=== PATIENT | male | born 1985 ===

== ENCOUNTER 2020-11-22 09:37 | Outpatient (CLI) | payer OTHER ==
[2020-11-22 12:59] VITALS: BP 141/75
--- NOTE | 2020-11-22 12:59 | SLEEP CARE CONSULTATION ---
Information from patient questionnaire entered by Aleksandra Rivera. I have reviewed and concur with the information entered by Aleksandra Rivera. This document represents the service I personally performed and the decisions made by me, Awilda Patterson MD, [facility]. History of Present Illness Service Date and Time: 11/22/2020 0937 Reason for Visit: New patient Chief Complaint: reports: Insomnia, Unrefreshed sleep, Excessive daytime sleepiness, Other (sleep paralysis) Date of Onset: sleep paralysis - 11 years, daytime sleepiness - 1 year Usual bedtime: 10-11 pm Time it takes to fall asleep: 15 minutes Number of times waking at night: 2 Reasons for waking at night: reports: Other (unknown reason) Toss, Turn, or Twitch while sleeping: Yes Recalls having dreams: No Usually gets out of bed at: 6 am on work days Feels refreshed in the morning: No Morning headache: No Sleepy or fatigued during the day: Yes Ever fallen asleep while driving: Yes Takes day naps: No Dreams during day naps: Yes Prior sleep studies: No Additional HPI information: I had the pleasure of seeing Mr. Curran today regarding the possibility of him having a sleep disorder. As you know, he is a 35 year old gentleman who complains of insomnia, excessive daytime sleepiness, unrefreshed sleep, and sleep paralysis. He says the sleep paralysis occurs when he is under stress. Usually he would fall back asleep. The patient tells me that he normally goes to bed around 10 - 11 pm, and it takes him approximately 15 minutes to fall asleep. He has not been told that he snores loudly or irregularly at night. He has never been observed to stop breathing in his sleep. However, he sleeps alone most of the time. He can recall waking up on the average of 2 times during the night. He has never awakened occasionally because of his own snoring, choking, or having to gasp for air. There is not a lot of tossing and turning in his sleep. No somniloquy (sleep talking) or somnambulism (sleep walking). Generally he can recall having dreams. In the morning he usually gets up out of the bed around 6 a.m. not feeling refreshed nor rested. He usually does not have a morning headache. During the day he feels sleepy and fatigued. His score on [place] Sleepiness Scale is 14 out of 24. He has fallen asleep while driving and has gone out of the hernan. He usually does not take naps during the day. Upon falling asleep during the day he reports having vivid dreams. He has never had sleep paralysis, experienced cataplexy or symptoms of restless leg syndrome. He reports having impaired concentration during the day. - Parasomnia Symptoms Ever been unable to move upon waking from sleep: Yes Walks in sleep: No Talks in sleep: No Ever acted out dreams in sleep: No Ever felt weak in the knees when startled or emotional: No Bothered by creepy, crawly, restless sensations in legs: No Problems with memory or concentration: Yes Subjective Initial [place] Sleepiness Scale score: 14 (in 2020) Social History The patient's occupation is a Active . Patient is Single and lives in [place]. Have you smoked in the past 12 months: No Alcohol use: Yes Alcohol amount and frequency: 2-3 drinks once a week Caffeine use: Yes Caffeine amount and frequency: once a day, mon-fri in the morning Family History Family history of sleep disordered breathing: Yes Family Hx Sleep Apnea: Mother: Snoring, Father: Snoring Allergies and Home Medications Drug allergies reviewed: Yes Home medication list reviewed: Yes Review of Systems Review of systems same as previous: Yes Weight gain over past 5 years: 30 Cardiovascular: denies: high blood pressure, palpitations, chest pain, irregular heart rate or pulse, leg or foot swelling, have to sleep sitting up, other Respiratory: denies: shortness of breath, wheeze, sputum production, chronic cough, other Gastrointestinal: denies: heartburn, difficulty swallowing, nausea, vomitting, diarrhea, abdominal pain, other Urinary: denies: incontinence, frequency, urgency, impotence, other Neurological: reports: other (memory loss) Psychiatric: denies: Attention Deficit Hyperactivity, anxiety, depression, mood disorder, claustrophobia, other Ear/Nose/Throat: reports: nasal congestion Endocrine: denies: thyroid disease, history of goiter, sluggishness, too hot or cold, excessive thirst, increased appetite, increased urination, unexplained weakness, other Musculoskeletal: denies: joint pain, neck pain, back pain, joint swelling, muscle pain or cramping, mobility problems, other Immunologic: reports: sneezing, rash Physical Exam Vital signs obtained and entered by: Dr. Patterson Blood Pressure: 141/75 Cuff size: regular Heart Rate: 58 O2 Saturation: 98 Height: 5 ft 11 in Weight: 188 lb Body Mass Index: 26.2 BMI Classification: Overweight Neck circumference: 16 HEENT: No craniofacial malformation Nostrils: patent to airflow Turbinates: normal Septum: midline Mouth and throat: normal Soft palate: normal Hard palate: normal Uvula: normal Uvula visualization: 100% Mallampati Class I Tongue: normal in size Tonsils: small Chin and jaw: normal size and position Neck: normal w/o lymphadenopathy or thyromegaly Heart: regular rate and rhythm Lungs: clear bilaterally Extremities: no edema or clubbing Impression and Plan IMPRESSION: 1. Hypersomnia, possibly narcolepsy without cataplexy given the symptoms of excessive daytime sleepiness, sleep paralysis, and hypnagogia. He appears to have adequate night sleep of 7 8 hours a night. I recommend proceeding to polysomnography identify any sleep disrupting conditions. If none, a multiple sleep latency test (MSLT) will be performed to see if he has narcolepsy. I informed the patient of what the sleep studies involve and after some discussion, he agreed to proceed. Plan: 1. Schedule polysomnography + multiple sleep latency test (MSLT) 2. Be careful with driving and avoid long distance driving or when feeling sleepy. 3. Avoid alcohol, sedative and muscle relaxant around bedtime. 4. Return for a follow up after the sleep study. Visit Type: In Office Time Spent with Patient (minutes): 15 Provider Statement: I spent 100% of the Face to Face Visit with the patient with greater than 50% spent counseling the patient and coordination of care.
== END 2020-11-22 09:38 | disposition home or self-care (01) ==
LOC: SC 09:37
PROVIDERS: ATTEND Internal Medicine Pulmonary Disease
DX: G47.10 Hypersomnia, unspecified (principal); E66.3 Overweight; Z68.26 Body mass index [BMI] 26.0-26.9, adult
CPT/HCPCS: 99202; 99212

== ENCOUNTER 2021-01-19 20:54 | Outpatient (CLI) | payer OTHER | END 2021-01-19 20:55 | disposition home or self-care (01) | LOC: SC 20:54 | PROVIDERS: ATTEND Internal Medicine Pulmonary Disease | DX: G47.8 Other sleep disorders (principal); G47.53 Recurrent isolated sleep paralysis; G47.10 Hypersomnia, unspecified; G47.00 Insomnia, unspecified | CPT/HCPCS: 95810 ==

== ENCOUNTER 2021-01-20 06:51 | Outpatient (CLI) | payer OTHER | END 2021-01-20 06:52 | disposition home or self-care (01) | LOC: SC 06:51 | PROVIDERS: ATTEND Internal Medicine Pulmonary Disease | DX: G47.00 Insomnia, unspecified (principal); G47.8 Other sleep disorders; G47.53 Recurrent isolated sleep paralysis; G47.10 Hypersomnia, unspecified | CPT/HCPCS: 80306; 95805 ==

== ENCOUNTER 2021-01-20 08:00 | Outpatient (CLI) | payer OTHER ==
[2021-01-20 12:33] LABS: MUDS CUTOFF CONCENTRATIONS CUTOFF CONC BELOW:
[2021-01-20 12:48] LABS: AMPHETAMINE SCREEN,URINE NEGATIVE (NEGATIVE); BARBITURATE SCREEN,UR NEGATIVE (NEGATIVE); BENZODIAZEPINES SCREEN, URINE NEGATIVE (NEGATIVE); COCAINE SCREEN URINE NEGATIVE (NEGATIVE); METHADONE SCREEN, URINE NEGATIVE (NEGATIVE); METHAMPHETAMINES SCREEN, URINE NEGATIVE (NEGATIVE); OPIATE SCREEN, URINE NEGATIVE (NEGATIVE); OXYCODONE SCREEN, URINE NEGATIVE (NEGATIVE); PROPOXYPHENE SCREEN, URINE NEGATIVE (NEGATIVE); THC CANNABINOID SCREEN, URINE NEGATIVE (NEGATIVE); TRICYCLIC ANTIDEPRESSANT,URINE NEGATIVE (NEGATIVE)
== END 2021-01-20 08:01 | disposition home or self-care (01) ==
LOC: LAB.R 08:00
DX: R41.82 Altered mental status, unspecified (principal)
CPT/HCPCS: 80306

== ENCOUNTER 2021-02-02 08:30 | Outpatient (CLI) | payer OTHER ==
[2021-02-02 09:18] VITALS: BP 115/70
--- NOTE | 2021-02-02 09:18 | SLEEP CARE CONSULTATION ---
Information from patient questionnaire entered by Aleksandra Rivera. I have reviewed and concur with the information entered by Aleksandra Rivera. This document represents the service I personally performed and the decisions made by , Tonie Carranza ARNP. History of Present Illness Service Date and Time: 02/02/2021 0830 Initial [place] Sleepiness Scale score: 14 (in 2020) Current [place] Sleepiness Scale score: 13 Additional HPI information: FRANCISCO RICHARDS returns for follow up and results of the recently performed polysomnography and MSLT. The patient was informed of the following findings: Patient was found to have no sleep disordered breathing with an AHI of 0.3 and [place]ingo oxygen saturation of 93%. He also had a light snore. His MSLT showed positive pathological daytime sleepiness indicating possible idiopathic hypersomnia. Patient does not have sleep apnea and was advised how weight gain could increase the risk of developing sleep apnea in the future. Patient has light snoring. Snoring can be reduced by weight loss. Patient counseled not drink alcohol less than 4 hours before bedtime as it can increase snoring and apnea. Patient was cautioned about risks of drowsy driving until sleepiness symptoms resolve. Sleep Study - Results Type of Sleep Study: Polysomnography (followed by MSLT) Prior sleep studies: No Polysomnography/Home Sleep Study results: IMPRESSION: The quality of the study is good. The patient had normal sleep efficiency. The sleep architecture was normal as well. REM latency was within normal limits. Respiratory monitoring showed no evidence of sleepdisordered breathing (AHI = 0.3) or hypoxemia ([place]ingo oxygen saturation of 93%). The patient slept mostly in supine position (AHI = 0.3; non-supine = 0.00). Snore was light in intensity. There was no significant periodic leg movement of sleep. Cardiac rhythm was normal sinus rhythm without significant arrhythmia. No abnormal behavior (parasomnia) observed during the night. CONCLUSIONS and RECOMMENDATIONS: 1. This is a normal in-laboratory polysomnography. Clinical correlation advised. 2. Please also see the multiple sleep latency test (MSLT) report. PHYSICIANS CONCLUSION: This MSLT is suggestive of pathological daytime sleepiness. One nap with sleep onset REM period is not diagnostic for narcolepsy. Therefore, idiopathic hypersomnia is the most likely diagnosis unless there is another obvious etiology, i.e. insufficient sleep syndrome. Allergies and Home Medications Home medication list reviewed: Yes (no changes) Review of Systems Review of systems same as previous: Yes (no changes) Physical Exam Blood Pressure: 115/70 Cuff size: wrist Heart Rate: 56 O2 Saturation: 98 Height: 5 ft 11 in Weight: 188 lb Body Mass Index: 26.2 BMI Classification: Overweight Impression and Plan 1. Hypersomnia, idopathic. He completed an in lab polysomnograph that showed no sleep disordered breathing. His MSLT was indicative of a pathological daytime sleepiness which could possibly be idiopathic hypersomnia. After discussing with patient treatments, I informed him of medication which to help him be more alert during the worst time of day which is between 10 AM and 2 PM where he is falling asleep at work. He decided he would like to try the medication. I will start him on Modafinil 200 mg daily in the morning. I reviewed side effects that he could possibly experience and when to stop medication. I will have him follow-up with either me or Dr. Awad in about a month to evaluate response. 2. Snoring but no significant sleep disordered breathing. Patient advised that often weight loss will reduce snoring as well as apnea risk. * Start Modafinil 200 mg daily in morning * Attempt to lose weight * Avoid alcohol consumption near bedtime * The patient is cautioned about driving until sleepiness is completely resolved. * Return in 1 month for follow up. Counseling Topics: Weight loss health impact Visit Type: In Office Time Spent with Patient (minutes): 25 Provider Statement: I spent 100% of the Face to Face Visit with the patient with greater than 50% spent counseling the patient and coordination of care.
== END 2021-02-02 08:31 | disposition home or self-care (01) ==
LOC: SC 08:30
PROVIDERS: ATTEND Nurse Practitioner Family
DX: G47.10 Hypersomnia, unspecified (principal); R06.83 Snoring
CPT/HCPCS: 99212; 99213

== ENCOUNTER 2021-02-07 15:14 | Outpatient (CLI) | payer OTHER ==
--- NOTE | 2021-02-07 16:01 | SLEEP CARE CONSULTATION ---
Information from patient questionnaire entered by Aleksandra Rivera. I have reviewed and concur with the information entered by Aleksandra Rivera. This document represents the service I personally performed and the decisions made by me, Awilda Patterson MD, [facility]. History of Present Illness Service Date and Time: 02/07/2021 1514 Reason for follow up: other (discuss idiopathic hypersomnia from sleep study) Prior sleep studies: Yes Year and Where: 2020 - [facility] Sleep Type of Sleep Study: Polysomnography (followed by MSLT) HPI additional information: HPI: Mr. Curran was diagnosed to have idiopathic hypersomnia based on his recent multiple sleep latency test (MSLT) which showed mean sleep latency of 4.5 minutes and on nap with sleep onset REM period. He was prescribed modafinil a week ago and reports significant improvement in his excessive daytime sleepiness. He is no longer sleepy. He has mild headache. No insomnia. 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 Subjective Initial [place] Sleepiness Scale score: 14 (in 2020) Current [place] Sleepiness Scale score: 13 Allergies and Home Medications Drug allergies reviewed: Yes Home medication list reviewed: Yes Review of Systems Review of systems same as previous: Yes Physical Exam Height: 5 ft 11 in Weight: 188 lb Body Mass Index: 26.2 BMI Classification: Overweight Impression and Plan IMPRESSION: 1. Idiopathic hypersomnia, responding well to modafinil. I feel that he is able to resume flying as long as he takes the medication. If there is any doubt, a maintenance of wakefulness test (MWT) can be performed on the medication. PLAN: 1. Continue with modafinil. 2. Resume flying. 3. Maintenance of wakefulness test (MWT) if his physician would like to objectively document his wakefulness. 4. Return in one year for follow up or earlier if there is any problem with the treatment. Visit Type: In Office Time Spent with Patient (minutes): 15 Provider Statement: I spent 100% of the Face to Face Visit with the patient with greater than 50% spent counseling the patient and coordination of care.
== END 2021-02-07 15:15 | disposition home or self-care (01) ==
LOC: SC 15:14
PROVIDERS: ATTEND Internal Medicine Pulmonary Disease
DX: G47.11 Idiopathic hypersomnia with long sleep time (principal)
CPT/HCPCS: 99212